=== PATIENT | male | born 1975 | race Caucasian/White ===

== ENCOUNTER 2021-03-25 14:40 | Emergency (ER) | payer OTHER, SELFPAY ==
--- NOTE | ~2021-03-25 | XR_ITS ---
XR ankle RT min 3V, XR foot RT min 3V 03/25/2021 14:58 Indication: Status post fall from ladder. Right ankle pain. Procedure: 4 views of the right ankle and 4 views right foot Comparison: No prior studies for comparison. Findings: There is a displaced fracture of the distal anterior margin of the tibia with anterior subl uxation of the talus with respect to the tibia. Lisfranc joint intact. There is moderate lateral soft tissue swelling. Impression: 1: Displaced fracture distal anterior margin of the tibia with anterior subluxation of the talus. Reviewed, dictated and finalized at location B. Impression: 1: Displaced fracture distal anterior margin of the tibia with anterior subluxa tion of the talus. Impression: 1: Displaced fracture distal anterior margin of the tibia with anterior subluxa tion of the talus.
[2021-03-25 14:46] VITALS: BP 147/93; PULSE 98; RESP 17; TEMP 36.2; O2SAT 99
--- NOTE | 2021-03-25 15:41 | ED.GENADULT ---
HPI - General Adult General Chief complaint: Extremity Injury, Lower Stated complaint: ankle injury Time Seen by Provider: 03/25/21 15:29 Source: patient History of Present Illness HPI narrative: Patient is 45 y/o male complaining of right ankle pain after a fall. He states that he was approximately 10 feet up on a ladder cutting tree. A tree branch snapped, struck him on left side and knocked him off the ladder. He threw away the chain saw and landed on his feet. He complains of sharp pain to right ankle. He rates his pain as 7/10. Movement worsens the pain. He is unable to bear weight. He has some abrasion to left chest wall. He denies any hitting his head or having LOC. He has no neck pain, back pain, chest pain or abdominal pain. Related Data Allergies Allergy/AdvReac Type Severity Reaction Status Date / Time No Known Allergies Allergy Unknown Verified 03/11/17 09:26 Review of Systems Constitutional: Constitutional: Denies chills, Denies fever(s), Denies headache(s) and Denies weakness Eyes: Eyes: Denies blurry vision ENT: Denies headache(s) and Denies neck pain Cardiovascular: Cardiovascular: Denies chest pain and Denies dyspnea Respiratory: Respiratory: Denies cough and Denies dyspnea Gastrointestinal: Gastrointestinal: Denies abdominal pain, Denies diarrhea, Denies nausea and Denies vomiting Genitourinary: Genitourinary: Denies hematuria and Denies dysuria Musculoskeletal: Musculoskeletal: Denies back pain, Reports arthralgias (right ankle pain) and Denies neck pain Neurologic: Denies headache(s) and Denies weakness [facility] Social History Social History Gender identity (if verbalized by the patient): Male Exam Const: General: no acute distress and well developed Orientation/consciousness: oriented to person, oriented to place, oriented to time and patient oriented x3 HENMT: Head: normocephalic Ears: external ears normal General nose exam: Normal external nose present Eyes: General: appearance normal, both eyes and all related structures Conjunctivae: conjunctivae normal Neck: Neck: normal visual inspection and full ROM Chest: Chest palpation & inspection: normal inspection of the chest and no tenderness Resp: Effort & Inspection: normal respiratory effort Auscultation: clear to auscultation bilaterally Cardio: Rate: regular rate Rhythm: regular rhythm GI: GI Palp: No abdominal tenderness and Yes Soft to palpation Skin: General skin exam: normal color and turgor normal Neuro: General: oriented to person, oriented to place, oriented to time and patient oriented x3 Cognition (Neuro): normal cognition Extrem: General: normal to inspection, full ROM and no pedal edema Right lower extremity: ankle Details: tenderness and swelling Psych: Appearance: grossly normal Mental Status: mental status grossly normal Affect: normal affect Course Reevaluation(s) Reevaluation #1: Informed patient of the plan for transfer to [place]. Advised patient to be transferred to [place] by ambulance. Patient refused ambulance transfer. He insists on going there by private vehicle. Date: 03/25/21 Time: 16:10 Consultations Consultation #1: Discussed with Dr. Leyva, who recommends consult trauma surgery for possible transfer. Date: 03/25/21 Time: 15:51 Consultation #2: Discussed with Dr. Sunshine (EDP) at [place], who accept the patient for transfer to ED. Date: 03/25/21 Time: 16:05 Vital Signs Vital signs: Vital Signs Temperature 36.2 C L 03/25/21 14:46 Pulse Rate 98 03/25/21 14:46 Respiratory Rate 17 03/25/21 14:46 Blood Pressure 147/93 H 03/25/21 14:46 Pulse Oximetry 99 03/25/21 14:46 Temperature 36.2 C L 03/25/21 14:46 Pulse Rate 90 03/25/21 16:10 Respiratory Rate 18 03/25/21 16:10 Blood Pressure 134/88 03/25/21 16:10 Pulse Oximetry 98 03/25/21 16:10 Medical Decision Making Vital Signs Vital Signs: Vital Signs
[2021-03-25] MEDS: HYDROcodone/acetaminophen (*CRX) 5-325 MG TABLET 1 TAB PO (15:56)
[2021-03-25 16:10] VITALS: BP 134/88; PULSE 90; RESP 18; O2SAT 98
--- NOTE | 2021-03-25 16:26 | PC.NURSE ---
Pt being transferred to [place]. He signed refusal for EMS transfer and will be transferring by private vehicle. Pt verbalized understanding of risks of transfer.
== END 2021-03-25 16:35 | disposition short-term general hospital (02) ==
PROVIDERS: Emergency Provider Emergency Medicine; PCP Internal Medicine
DX: S82.871A Displaced pilon fracture of right tibia, initial encounter for closed fracture (principal); W11.XXXA Fall on and from ladder, initial encounter
CPT/HCPCS: 29515; 73610; 73630; 99284; A9270

== ENCOUNTER 2021-09-05 02:14 | Day surgery (SDC) | payer OTHER, SELFPAY ==
[2021-08-21 13:46] VITALS: BMI 35.0
--- NOTE | 2021-09-05 07:22 | PM.HPGS ---
History of Present Illness History of Present Illness Consent: Risks, benefits, and alternatives have been discussed and questions answered. Patient agrees to proceed with procedure. Chief complaint: neoplasm, hx of colon polyps Narrative: Juanito Farnsworth is a 46 year old male with family history of colon cancer in his father. He also has had polyps removed in the past Review of Systems Review of Systems: All systems reviewed & are unremarkable except as noted in HPI and below PMFSH Past Medical History Medical History Migraine OLE (obstructive sleep apnea) Social History Social History Smoking status: Former smoker Tobacco type: cigarettes Alcohol intake: current Drinks per week: 4 Substance use: never Substance use type: does not use Living arrangements: with family Gender identity (if verbalized by the patient): Male Spiritual care concerns: No Meds Home Medications and Allergies Home Medications Medication Instructions Recorded Confirmed Type ascorbic acid (vitamin C) mg PO 08/21/21 08/21/21 History cholecalciferol (vitamin D3) 125 mcg PO DAILY 08/21/21 08/21/21 History [Dialyvite Vitamin D] mecobalamin (vitamin B12) [B12 1,000 mcg PO DAILY 08/21/21 08/21/21 History Active] omega 9-eiw-[id number]-fish oil [Fish Oil] 1 cap PO DAILY 08/21/21 08/21/21 History pantoprazole 40 mg PO DAILY 08/21/21 08/21/21 History Allergies Allergy/AdvReac Type Severity Reaction Status Date / Time No Known Allergies Allergy Unknown Verified 09/05/21 08:11 Exam Resp: Auscultation: clear to auscultation bilaterally Cardio: Rate: regular rate Rhythm: regular rhythm GI: GI Palp: Yes Soft to palpation and No Tenderness to palpation present (GI) Assessment and Plan Assessment and plan (1) Colon cancer screening: Code(s): Z12.11 - Encounter for screening for malignant neoplasm of colon Status: Acute Assessment and Plan: Colonoscopy with possible biopsy or polypectomy or cautery or injection of substances.
[2021-09-05 08:13] VITALS: BP 133/84; PULSE 54; RESP 18; O2SAT 99
[2021-09-05] MEDS: LACTATED RINGERS 1,000 ML 150 ML IV CONT (08:22)
--- NOTE | 2021-09-05 08:45 | WPDANESEPPF ---
Anes - Initial Pre Proc Eval Procedure: Operation Date: 09/05/21 09:00 Proposed Procedures p Screening Colonoscopy - Hardik Figueroa MD Date/Time: 09/05/21 08:45 Surgeon: Hardik Figueroa MD Pre Op Diagnosis: neoplasm, hx of colon polyps Patient Data Age: 46 Gender: M Height: 1.85 m Weight: 116.4 kg Last Vital Signs Pulse 54 L 09/05/21 08:13 Resp 18 09/05/21 08:13 BP 133/84 09/05/21 08:13 Pulse Ox 99 09/05/21 08:13 Allergies Allergy/AdvReac Type Severity Reaction Status Date / Time No Known Allergies Allergy Unknown Verified 09/05/21 08:11 Home Medications Medication Instructions Recorded Confirmed Type ascorbic acid (vitamin C) mg PO 08/21/21 08/21/21 History cholecalciferol (vitamin D3) 125 mcg PO DAILY 08/21/21 08/21/21 History [Dialyvite Vitamin D] mecobalamin (vitamin B12) [B12 1,000 mcg PO DAILY 08/21/21 08/21/21 History Active] omega 5-zge-phh-fish oil [Fish Oil] 1 cap PO DAILY 08/21/21 08/21/21 History pantoprazole 40 mg PO DAILY 08/21/21 08/21/21 History Patient hx anesthesia problems: none Family hx anesthesia problems: none Results Review: All pre-operative results and documents have been reviewed as part of the pre-operative evaluation. [facility] Past Medical History Medical History Migraine OLE (obstructive sleep apnea) Social History Social History Smoking status: Former smoker Tobacco type: cigarettes Alcohol intake: current Drinks per week: 4 Substance use: never Substance use type: does not use Living arrangements: with family Gender identity (if verbalized by the patient): Male Spiritual care concerns: No Anes - Eval Final PreProcedure Day of Procedure 09/05/21 08:45 Patient weight: obese Heart: regular rate and rhythm Lungs: clear to auscultation Airway: Mallampati scale class II Neurological: alert and oriented Last oral intake: >/= 8 hours ASA classification: II Emergent: no Anesthetic plan: proceed Anesthesia type and monitoring: general GIVS and standard monitoring Results Review: All pre-operative results and documents have been reviewed as part of the pre-operative evaluation. Informed Consent: The patient's anesthetic plan and its attendant risks and benefits were discussed with the patient/family/POA. Questions were solicited and answers provided to the satisfaction of the patient/family/POA.
[2021-09-05 09:07] VITALS: BP 112/72; PULSE 74; RESP 14; O2SAT 97
[2021-09-05 09:17] VITALS: BP 109/76; PULSE 69; RESP 14; O2SAT 95
[2021-09-05 09:27] VITALS: BP 112/83; PULSE 80; RESP 22; O2SAT 98
== END 2021-09-05 09:40 | disposition home or self-care (01) ==
PROVIDERS: PCP Internal Medicine; Visit Provider Internal Medicine Gastroenterology
PROC: 0DJD8ZZ Inspection of Lower Intestinal Tract, Via Natural or Artificial Opening Endoscopic (ICD-10-PCS; CPT 45378; principal; 2021-09-05 09:00)
DX: Z12.11 Encounter for screening for malignant neoplasm of colon (principal); Z86.010 Personal history of colon polyps; Z80.0 Family history of malignant neoplasm of digestive organs; G47.33 Obstructive sleep apnea (adult) (pediatric); Z87.891 Personal history of nicotine dependence; E66.9 Obesity, unspecified; Z68.33 Body mass index [BMI] 33.0-33.9, adult
CPT/HCPCS: 45378; J2704; J7120